=== PATIENT | male | born 1930 | race Caucasian/White ===

== ENCOUNTER 2019-06-22 13:50 | Emergency (ER) | payer MEDICARE, OTHER ==
[~2019-06-22] VITALS: Ht 180.3 cm; Wt 65.0 kg
[~2019-06-22 13:50] MED LIST: AMLO-150 PO; AZIT500T10 PO; CEFD300C37 PO; GABA-826 PO; HYDR12.517 PO; LISI40TA PO; OSEL75CA26 PO; ROPI0.5T2 PO; SIMV40TA3 PO; TAMS-11 PO
[2019-06-22 14:23] LABS: ALANINE AMINOTRANSFERASE 21 U/L (12-78); ALBUMIN 2.5 g/dL (3.4-5.0); ANION GAP 6 mmol/L (5-15); CALCIUM 9.3 mg/dL (8.5-10.1); CHLORIDE 111 mmol/L (98-107); CREATININE 1.92 mg/dL (0.7-1.3)
[2019-06-22 14:24] LABS: BASOPHILS # (AUTO) 0.06 x10^3/uL (0-0.1); BASOPHILS % (AUTO) 1 % (0-1); EOSINOPHILS # (AUTO) 0.16 x10^3/uL (0-0.4); EOSINOPHILS % (AUTO) 3 % (1-7); LYMPHOCYTES # (AUTO) 0.77 x10^3/uL (1-3.4); LYMPHOCYTES % (AUTO) 15 % (22-44); MD NO; MEAN CORPUSCULAR HGB CONC 33.3 g/dL (33.2-36.2); MEAN CORPUSCULAR VOLUME 96.2 fL (81-97); MEAN PLATELET VOLUME 7.7 fL (7.4-10.4); MONOCYTES # (AUTO) 0.29 x10^3/uL (0.2-0.8); MONOCYTES % (AUTO) 6 % (2-9); NEUTROPHILS # (AUTO) 4.03 x10^3/uL (1.8-6.8); NEUTROPHILS % (AUTO) 76 % (42-75); PLATELET COUNT 304 x10^3/uL (130-400); RED CELL DISTRIBUTION WIDTH 15.4 % (9.4-14.8)
--- NOTE | 2019-06-22 14:26 | NUR ---
[employer] TREASURY CONSULTANT: PT TO ROOM FROM LOBBY, VIA WHEELCHAIR.
[2019-06-22 14:27] LABS: ALKALINE PHOSPHATASE 80 U/L (45-117); BILIRUBIN,TOTAL 0.5 mg/dL (0.2-1.0); TOTAL PROTEIN 7.3 g/dL (6.4-8.2); TROPONIN I < 0.015 ng/mL (0.000-0.045)
--- NOTE | 2019-06-22 15:53 | NUR ---
PT. IS A & O X 4 WITH C/O INCREASING FALLS AND WEAKNESS OVER THE PAST 5 DAYS. PT. IS PINK, WARM AND DRY. LUNGS ARE DIMINISHED IN THE BASES. PCXR WAS DONE AND NEW ABNORMALITIES WERE FOUND. PT. FELL AND HIT HIS RIBS, NO FRACTURES NOTED. 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 RESP ARE EUPNEIC AND SATS ARE 100% ON ROOM AIR. PT. DENIES C/O PAIN AT THIS TIME. PT. STATES HE DOES HAVE URINARY RETENTION. PT.'S ABD. IS SOFT AND ROUND WITH BS + X 4 QUADS. MM ARE PINK AND MOIST WITH PULSES +2 THROUGHOUT. PT. GILBERT WNL. CAMRYN LUNSFORD PLACED A MORTON CATH PER MD ORDERS. PT. HAS THE CP MONITOR IN PLACE AND IV ACCESS WAS ESTABLISHED. SIDERAILS REMAIN UP X 2 WITH THE CALL LIGHT IN PLACE. PT. IS AT THE BEDSIDE.
[2019-06-22 16:25] LABS: MICROSCOPIC INDICATED
[2019-06-22 16:40] LABS: CULTURE INDICATED? YES
--- NOTE | 2019-06-22 16:53 | NUR ---
PT. IS RESTING WITHOUT CONCERNS AT THIS TIME.
[2019-06-22] MEDS ORDERED: ACETAMINOPHEN 325 MG TABLET PO ONE (17:30)
--- NOTE | 2019-06-22 17:35 | NUR ---
Note [email or web address] in EDM - 06/22/19 at 1826 by JANNETTE PT. REMAINS MONITORED WITH SEIZURE PRECAUTIONS IN PLACE. PT. FINISHED HIS SNACK AND HIS REPEAT [id number]. PT. HAS NO CONCERNS AT THIS TIME. VSS.
[2019-06-22] MEDS ORDERED: ACETAMINOPHEN 325 MG TABLET ONE (18:15)
--- NOTE | 2019-06-22 18:25 | NUR ---
PT. WAS GIVEN TYLENOL. FAMILY IS AT THE BEDSIDE. VSS.
--- NOTE | 2019-06-22 19:37 | NUR ---
PT.'S MORTON CATH WAS CHANGED TO A LEG BAG. VSS. PT. AND HIS FAMILY WERE GIVEN DISCHARGE INSTRUCTIONS AND A SCRIPT. UNDERSTANDING WAS VERBALIZED ALONG WITH WILLINGNESS TO COMPLY. PT.'S IV WAS DCD', CATH TIP INTACT PRESSURE HELD WITH HEMOSTASIS ACHIEVED. PT. WAS ASSISTED WITH DRESSING AND TAKEN TO THE DISCHARGE DESK IN A WHEELCHAIR WITH HIS FAMILY AT HIS SIDE.
[2019-06-22 19:39] VITALS: BP 120/78
--- NOTE | 2019-06-22 19:39 | NUR ---
PT. STATED RELIEF FROM THE TYLENOL GIVEN.
== END 2019-06-22 19:41 | disposition home or self-care (01) ==
LOC: ED 17:20
DX: N30.00 Acute cystitis without hematuria (principal); R33.9 Retention of urine, unspecified; R07.89 Other chest pain; Z85.118 Personal history of other malignant neoplasm of bronchus and lung
CPT/HCPCS: 36415; 51702; 70450; 71046; 72125; 74176; 80053; 81001; 84484; 85025; 87086; 93005; 99284

== ENCOUNTER → 2020-02-25 | Outpatient (CLI) | payer MEDICARE, OTHER ==
[~2020-02-25] MED LIST changes: +HYDR25TA6 PO; -ROPI0.5T2 PO; +ROPI0.5T4 PO; +SIMV40TA20 PO; -SIMV40TA3 PO
[2020-02-25 13:04] LABS: MICROSCOPIC NOT IND
[2020-02-25 13:05] LABS: BASOPHILS # (AUTO) 0.06 x10^3/uL (0-0.1); BASOPHILS % (AUTO) 1 % (0-1); EOSINOPHILS # (AUTO) 0.21 x10^3/uL (0-0.4); EOSINOPHILS % (AUTO) 3 % (1-7); LYMPHOCYTES # (AUTO) 1.31 x10^3/uL (1-3.4); LYMPHOCYTES % (AUTO) 20 % (22-44); MD NO; MEAN CORPUSCULAR HGB CONC 33.2 g/dL (33.2-36.2); MEAN CORPUSCULAR VOLUME 96.4 fL (81-97); MEAN PLATELET VOLUME 8.2 fL (7.4-10.4); MONOCYTES # (AUTO) 0.56 x10^3/uL (0.2-0.8); MONOCYTES % (AUTO) 9 % (2-9); NEUTROPHILS # (AUTO) 4.44 x10^3/uL (1.8-6.8); NEUTROPHILS % (AUTO) 67 % (42-75); PLATELET COUNT 214 x10^3/uL (130-400); RED BLOOD COUNT 3.42 x10^6/uL (4.38-5.82); RED CELL DISTRIBUTION WIDTH 15.4 % (9.4-14.8)
[2020-02-25 13:12] LABS: INTERNATIONAL NORMALIZED RATIO 0.97 (0.93-1.1)
[2020-02-25 13:15] LABS: ALANINE AMINOTRANSFERASE 12 U/L (12-78); ALBUMIN 3.3 g/dL (3.4-5.0); ANION GAP 4 mmol/L (5-15); CALCIUM 8.8 mg/dL (8.5-10.1); CHLORIDE 110 mmol/L (98-107); CREATININE 1.69 mg/dL (0.7-1.3)
[2020-02-25 13:17] LABS: ALKALINE PHOSPHATASE 91 U/L (45-117); BILIRUBIN,TOTAL 0.4 mg/dL (0.2-1.0); TOTAL PROTEIN 7.3 g/dL (6.4-8.2)
== END | disposition home or self-care (01) ==
LOC: STAR 11:16
PROVIDERS: ATTEND Neurological Surgery
DX: Z01.818 Encounter for other preprocedural examination (principal); I45.10 Unspecified right bundle-branch block; M47.816 Spondylosis without myelopathy or radiculopathy, lumbar region; M48.062 Spinal stenosis, lumbar region with neurogenic claudication
CPT/HCPCS: 36415; 71046; 72110; 80053; 81003; 85025; 85610; 85730; 93005

== ENCOUNTER 2020-03-03 12:13 | Outpatient (CLI) | payer MEDICARE, OTHER | END 2020-03-03 23:59 | disposition home or self-care (01) | LOC: STAR 12:13 | PROVIDERS: ATTEND Anesthesiology | DX: Z01.818 Encounter for other preprocedural examination (principal); Z11.59 Encounter for screening for other viral diseases | CPT/HCPCS: 36415; 87635 ==

== ENCOUNTER 2020-03-07 11:34 | Observation (INO) | payer MEDICARE, OTHER ==
[~2020-03-07] VITALS: Ht 180.3 cm; Wt 77.7 kg
[~2020-03-07 11:34] MED LIST changes: +BACITRACIN 50,000 UNIT ONE; +BUPIVACAINE/PF 0.25% ONE; +BUPIVACAINE/PF-EPI 0.5% 1:200K ONE; +VANCOMYCIN 1,000 MG ONE
[2020-03-07] MEDS ORDERED: LACTATED RINGERS 1,000 ML IV SCH (12:17)
[2020-03-07] MEDS ORDERED: CHLORHEXIDINE 15 ML UDC ONE (12:26)
[2020-03-07] MEDS ORDERED: CHLORHEXIDINE 15 ML UDC MM ONE (12:30)
[2020-03-07] MEDS ORDERED: FENTANYL PF 250 MCG/5ML ONE (12:53)
[2020-03-07] MEDS ORDERED: BUPIVACAINE/PF-EPI 0.5% 1:200K INFIL ONE (16:56)
[2020-03-07] MEDS ORDERED: hydrALAzine 20 MG/ML, 1ML IV PRN (17:00)
[2020-03-07] MEDS ORDERED: HYDROmorphone 1 MG/ML, 1ML INJ IVPush PRN (17:00)
[2020-03-07] MEDS ORDERED: METHOCARBAMOL 1,000 MG in DEXTROSE 5% 100 ML IV PRN (17:00)
[2020-03-07] MEDS ORDERED: ONDANSETRON 2MG/ML, 2ML IVPush PRN (17:00)
[2020-03-07] MEDS ORDERED: OXYcodone 5 MG/5 ML ORAL.SOL UDC PO PRN (17:00)
[2020-03-07] MEDS ORDERED: LABETALOL 5MG/ML, 20ML IV PRN (17:00)
[2020-03-07] MEDS ORDERED: FENTANYL PF 100 MCG/2ML IV PRN (17:00)
[2020-03-07] MEDS ORDERED: ACETAMINOPHEN 325 MG TABLET PO PRN (17:00)
[2020-03-07] MEDS ORDERED: PROMETHAZINE 25 MG/ML, 1ML IVPush PRN (17:00)
[2020-03-07] MEDS ORDERED: CEFAZOLIN 1,000 MG ONE (17:32)
[2020-03-07] MEDS ORDERED: PROPOFOL 10 MG/ML, 20ML ONE (17:32)
[2020-03-07] MEDS ORDERED: SUCCINYLCHOLINE 20 MG/ML, 10ML ONE (17:32)
[2020-03-07] MEDS ORDERED: GLYCOPYRROLATE 0.2MG/1ML, 5ML ONE (17:32)
[2020-03-07] MEDS ORDERED: ONDANSETRON 2MG/ML, 2ML ONE (17:32)
[2020-03-07] MEDS ORDERED: ROCURONIUM 10MG/ML,5ML ONE (17:32)
[2020-03-07] MEDS ORDERED: SUGAMMADEX 200 MG/2 ML IVPush ONE (17:32)
[2020-03-07] MEDS ORDERED: NEOSTIGMINE 1 MG/ML, 10ML ONE (17:32)
[2020-03-07] MEDS ORDERED: DEXAMETHASONE 4 MG/ML, 1ML ONE (17:32)
[2020-03-07] MEDS ORDERED: OXYcodone 5 MG/5 ML ORAL.SOL UDC ONE (18:15)
[2020-03-07 19:56] VITALS: BP 119/54
[2020-03-07] MEDS ORDERED: DIPHENHYDRAMINE 25 MG CAPSULE PO PRN (20:30)
[2020-03-07] MEDS ORDERED: OXYcodone IR 5MG TABLET PO PRN (20:30)
[2020-03-07] MEDS ORDERED: morphine SULFATE 10 MG/ML, 1ML IV PRN (20:30)
[2020-03-07] MEDS ORDERED: BISACODYL 10 MG SUPP PR PRN (20:30)
[2020-03-07] MEDS ORDERED: ONDANSETRON 2MG/ML, 2ML IV PRN (20:30)
[2020-03-07] MEDS ORDERED: MAGNESIUM HYDROXIDE 8%, 30ML UDC PO PRN (20:30)
[2020-03-07] MEDS ORDERED: DIPHENHYDRAMINE 50 MG/ML, 1ML IVPush PRN (20:30)
[2020-03-07] MEDS: NS + 20MEQ KCL 1,000 ML IV SCH (22:52)
[2020-03-07 23:15] VITALS: BP 122/56
[2020-03-08] MEDS: CEFAZOLIN PMX 1GM/50ML 50 ML IVPB SCH ×2 (00:47→09:20)
[2020-03-08 02:58] VITALS: BP 105/61
[2020-03-08 07:52] VITALS: BP 119/53
[2020-03-08] MEDS ORDERED: TAMSULOSIN 0.4 MG CAP.ER.24H PO SCH (09:00)
[2020-03-08] MEDS: ROPINIROLE 0.5MG TABLET PO SCH (09:17)
[2020-03-08] MEDS: LISINOPRIL 20 MG TABLET PO SCH (09:17)
[2020-03-08] MEDS: AMLODIPINE 5 MG TABLET PO SCH (09:17)
[2020-03-08] MEDS: SENNA/DOCUSATE TABLET PO SCH (09:17)
[2020-03-08] MEDS: HYDROcodone/APAP 10/325 MG TABLET PO PRN ×3 (09:18→18:36)
[2020-03-08] MEDS: HYDROCHLOROTHIAZIDE 12.5 MG CAPSULE PO SCH (09:18)
[2020-03-08] MEDS: NS + 20MEQ KCL 1,000 ML IV SCH ×2 (10:09→19:30)
[2020-03-08 13:16] VITALS: BP 134/90
[2020-03-08 18:56] VITALS: BP 128/59
[2020-03-09] MEDS: HYDROcodone/APAP 10/325 MG TABLET PO PRN ×2 (00:28→06:23)
[2020-03-09 00:38] VITALS: BP 99/51
[2020-03-09] MEDS: NS + 20MEQ KCL 1,000 ML IV SCH (05:10)
[2020-03-09 07:35] VITALS: BP 115/57
[2020-03-09] MEDS ORDERED: HYDR-3245 PO (08:46)
[2020-03-09] MEDS ORDERED: TIZA2TAB4 PO (08:46)
[2020-03-09] MEDS ORDERED: ROPINIROLE 1MG TABLET ONE (08:55)
[2020-03-09] MEDS: SENNA/DOCUSATE TABLET PO SCH (08:56)
[2020-03-09] MEDS: HYDROCHLOROTHIAZIDE 12.5 MG CAPSULE PO SCH (08:56)
[2020-03-09] MEDS: LISINOPRIL 20 MG TABLET PO SCH (08:57)
[2020-03-09] MEDS: ROPINIROLE 0.5MG TABLET PO SCH (08:57)
[2020-03-09] MEDS: AMLODIPINE 5 MG TABLET PO SCH (08:58)
[2020-03-09 11:02] VITALS: BP 106/55
== END 2020-03-09 11:47 | disposition home or self-care (01) ==
LOC: OUT 11:34 → 4NE 19:34 → OUT 20:33 → DCLOUNGE 03-09 11:42
PROVIDERS: ADMIT Neurological Surgery; ATTEND Neurological Surgery
DX: M48.062 Spinal stenosis, lumbar region with neurogenic claudication (principal); I10 Essential (primary) hypertension; E78.00 Pure hypercholesterolemia, unspecified; I71.4 Abdominal aortic aneurysm, without rupture; J44.9 Chronic obstructive pulmonary disease, unspecified; F17.200 Nicotine dependence, unspecified, uncomplicated; Z85.118 Personal history of other malignant neoplasm of bronchus and lung; Z79.899 Other long term (current) drug therapy
CPT/HCPCS: 63047; 63048; 72100; 96361; 96365; 96366; 97162; 97165; G0378; J0690; J1100; J2405; J2704; J2710; J3010; J3370; J3480; J7120; J3490; J0330

== ENCOUNTER 2020-04-25 10:00 | Inpatient (IN) | payer MEDICARE, OTHER ==
[~2020-04-25] VITALS: Ht 180.3 cm; Wt 74.2 kg
[2020-04-25] VITALS (13 sets, daily range): BP systolic 108–172; BP diastolic 45–79
[~2020-04-25 10:00] MED LIST changes: +APIX5TAB PO; -BACITRACIN 50,000 UNIT ONE; -BUPIVACAINE/PF 0.25% ONE; -BUPIVACAINE/PF-EPI 0.5% 1:200K ONE; +HYDR-3245 PO; +LIOT5TAB10 PO; +TIZA2TAB4 PO; -VANCOMYCIN 1,000 MG ONE
--- NOTE | 2020-04-25 10:04 | NUR ---
Evelia Loo [facility] [phone]
--- NOTE | 2020-04-25 10:25 | NUR ---
THIS IS A 89 YO M BIB EMS FROM HOME W/ C/O WEAKNESS X1 MONTH. PT REPORTS DID OUTPATIENT LABS A FEW DAYS AGO AND GOT RESULTS TODAY, HGB 4.6. PT REPORTS MULTIPLE FALLS OVER THE PAST FEW MONTHS BUT NONE WITHIN THE PAST 48 HOURS. PT REPORTS PRODUCTIVE COUGH X7 MONTHS, QUIT SMOKING 2 WEEKS AGO. PT REPORTS NO OTHER COMPLAINTS AT THIS TIME. PIV [employer]. PT RESTING ON [employer] W/ CALL LIGHT IN REACH AND SIDE RAILS UPX2. CONNECTED TO ALL MONITORING.
[2020-04-25] MEDS ORDERED: TAMS-11 PO (10:29)
[2020-04-25] MEDS ORDERED: SODIUM CHLORIDE FLUSH 10ML SYR IVF ONE (10:30)
--- NOTE | 2020-04-25 10:35 | NUR ---
PER AFSHIN, PT WAS DX W/ AFIB ON 03/28
[2020-04-25 10:53] LABS: BASOPHILS % (AUTO) 1 % (0-1); EOSINOPHILS % (AUTO) 4 % (1-7); LYMPHOCYTES % (AUTO) 20 % (22-44); MEAN CORPUSCULAR HEMOGLOBIN 30.3 pg (27.5-34.5); MEAN CORPUSCULAR HGB CONC 30.8 g/dL (33.2-36.2); MEAN PLATELET VOLUME 7.9 fL (7.4-10.4); MONOCYTES % (AUTO) 9 % (2-9); NEUTROPHILS % (AUTO) 66 % (42-75); PLATELET COUNT 221 x10^3/uL (130-400); RED BLOOD COUNT 1.48 x10^6/uL (4.38-5.82); RED CELL DISTRIBUTION WIDTH 16.9 % (9.4-14.8)
[2020-04-25 10:58] LABS: INTERNATIONAL NORMALIZED RATIO 1.07 (0.93-1.1)
[2020-04-25 10:59] LABS: ALANINE AMINOTRANSFERASE 10 U/L (12-78); ALBUMIN 2.5 g/dL (3.4-5.0); ANION GAP 5 mmol/L (5-15); CALCIUM 8.3 mg/dL (8.5-10.1); CHLORIDE 120 mmol/L (98-107); CREATININE 1.93 mg/dL (0.7-1.3)
[2020-04-25 11:01] LABS: ALKALINE PHOSPHATASE 78 U/L (45-117); BILIRUBIN,TOTAL 0.1 mg/dL (0.2-1.0); TOTAL PROTEIN 5.8 g/dL (6.4-8.2)
[2020-04-25 11:22] LABS: MD SCAN
--- NOTE | 2020-04-25 11:33 | NUR ---
PURPLE SLIP SENT TO BLOOD BANK.
--- NOTE | 2020-04-25 11:56 | NUR ---
BLOOD TRANSFUSION STARTED, VERIFIED BY KOLE COWAN. CONSENT SIGNED AND PLACED ON CHART.
--- NOTE | 2020-04-25 12:13 | NUR ---
PT VSS, NO NEW COMPLAINTS AT THIS TIME. INFUSION RATE INCREASED AT THIS TIME.
[2020-04-25] MEDS ORDERED: SODIUM CHLORIDE FLUSH 10ML SYR IVF PRN (13:30)
--- NOTE | 2020-04-25 13:36 | NUR ---
TRANSFUSION ENDED. VSS, ELIEN.
--- NOTE | 2020-04-25 14:42 | NUR ---
REPORT GIVEN TO AAMIR COWAN. PT IS READY FOR TRANSPORT AT THIS TIME.
[2020-04-25] MEDS: ROPINIROLE 0.5MG TABLET PO SCH (20:28)
[2020-04-25] MEDS ORDERED: FUROSEMIDE 20 MG/2 ML IV ONE (23:30)
[2020-04-25] MEDS ORDERED: FUROSEMIDE 20 MG/2 ML ONE (23:34)
[2020-04-26 00:28] VITALS: BP 164/76
[2020-04-26 07:09] VITALS: BP 107/58
[2020-04-26 07:10] LABS: BASOPHILS % (AUTO) 1 % (0-1); EOSINOPHILS % (AUTO) 0 % (1-7); LYMPHOCYTES % (AUTO) 3 % (22-44); MEAN CORPUSCULAR HEMOGLOBIN 30.5 pg (27.5-34.5); MEAN CORPUSCULAR HGB CONC 32.8 g/dL (33.2-36.2); MEAN PLATELET VOLUME 7.8 fL (7.4-10.4); MONOCYTES % (AUTO) 3 % (2-9); NEUTROPHILS % (AUTO) 93 % (42-75); PLATELET COUNT 188 x10^3/uL (130-400); RED CELL DISTRIBUTION WIDTH 16.7 % (9.4-14.8)
[2020-04-26] MEDS: ALBUTEROL-IPRATROPIUM MDI INH INH SCH ×4 (07:35→20:14)
[2020-04-26 08:22] LABS: MD SCAN
[2020-04-26] MEDS: ROPINIROLE 0.5MG TABLET PO SCH (09:05)
[2020-04-26] MEDS ORDERED: FUROSEMIDE 40 MG/4 ML IV ONE (11:00)
[2020-04-26] MEDS: TAMSULOSIN 0.4 MG CAP.ER.24H PO SCH (11:02)
[2020-04-26 12:35] VITALS: BP 114/61
[2020-04-26] MEDS ORDERED: GOLYTELY 4,000ML ORAL.SOL PO ONE (18:00)
[2020-04-26 19:10] VITALS: BP 131/65
[2020-04-27] VITALS (8 sets, daily range): BP systolic 100–126; BP diastolic 49–65
[2020-04-27] MEDS: TRAZODONE 50MG TABLET PO PRN ×2 (00:23→23:28)
[2020-04-27 06:31] LABS: ALBUMIN 2.2 g/dL (3.4-5.0); ANION GAP 9 mmol/L (5-15); CALCIUM 7.7 mg/dL (8.5-10.1); CHLORIDE 110 mmol/L (98-107); CREATININE 1.89 mg/dL (0.7-1.3)
[2020-04-27] MEDS: ALBUTEROL-IPRATROPIUM MDI INH INH SCH ×4 (08:00→19:58)
[2020-04-27] MEDS ORDERED: CHLORHEXIDINE 15 ML UDC MM STA (10:58)
[2020-04-27] MEDS ORDERED: PROPOFOL 10 MG/ML, 20ML ONE (11:45)
[2020-04-27] MEDS ORDERED: LIDOCAINE-MPF 2% ,5ML ONE (11:45)
[2020-04-27] MEDS ORDERED: PHENYLEPHRINE 10 MG/ML ONE (11:45)
[2020-04-27] MEDS ORDERED: DEXAMETHASONE 4 MG/ML, 1ML ONE (11:45)
[2020-04-27] MEDS ORDERED: LABETALOL 5MG/ML, 20ML ONE (11:49)
[2020-04-27] MEDS ORDERED: MAGNESIUM SULFATE 1 GM/2 ML ONE (11:50)
[2020-04-27] MEDS ORDERED: cloniDINE/PF 100 MCG/ML, 10 ML ONE (11:50)
[2020-04-27] MEDS ORDERED: METHOCARBAMOL 1,000 MG in DEXTROSE 5% 100 ML IV PRN (12:00)
[2020-04-27] MEDS ORDERED: DIPHENHYDRAMINE 50 MG/ML, 1ML IVPush PRN (12:00)
[2020-04-27] MEDS ORDERED: ALBUTEROL/IPRATROPIUM 2.5MG/0.5MG, 3 ML NPPB PRN (12:00)
[2020-04-27] MEDS ORDERED: HALOPERIDOL 5 MG/ML IV PRN (12:00)
[2020-04-27] MEDS ORDERED: MEPERIDINE/PF 25MG/0.5ML IVPush PRN (12:00)
[2020-04-27] MEDS ORDERED: EPHEDRINE 50 MG/ML, 1ML IVPush PRN (12:00)
[2020-04-27] MEDS ORDERED: OXYcodone 5 MG/5 ML ORAL.SOL UDC PO PRN (12:00)
[2020-04-27] MEDS ORDERED: ONDANSETRON 2MG/ML, 2ML IVPush PRN (12:00)
[2020-04-27] MEDS ORDERED: LABETALOL 5MG/ML, 20ML IV PRN (12:00)
[2020-04-27] MEDS ORDERED: HYDROmorphone 1 MG/ML, 1ML INJ IVPush PRN (12:00)
[2020-04-27] MEDS ORDERED: FENTANYL PF 100 MCG/2ML IV PRN (12:00)
[2020-04-27] MEDS ORDERED: DIAZEPAM 5 MG/ML, 2ML IVPush PRN (12:00)
[2020-04-27] MEDS ORDERED: EPHEDRINE 50 MG/ML, 1ML IM PRN (12:00)
[2020-04-27] MEDS ORDERED: hydrALAzine 20 MG/ML, 1ML IV PRN (12:00)
[2020-04-27] MEDS ORDERED: MIDAZOLAM 1 MG/ML, 2ML IV PRN (12:00)
[2020-04-27] MEDS ORDERED: HYDROcodone/APAP 7.5-325MG/15ML UDC PO PRN (12:00)
[2020-04-27] MEDS ORDERED: LORazepam 2 MG/ML, 1ML IVPush PRN (12:00)
[2020-04-27] MEDS ORDERED: MIDAZOLAM 1 MG/ML, 2ML ONE (12:56)
[2020-04-27] MEDS ORDERED: EPINEPHRINE 1 MG/ML, 1ML SQ PRN (14:30)
[2020-04-27] MEDS ORDERED: IRON DEXTRAN COMPLEX 25 MG in SODIUM CHLORIDE 0.9% 50 ML IV ONE (14:30)
[2020-04-27] MEDS: TAMSULOSIN 0.4 MG CAP.ER.24H PO SCH (15:26)
[2020-04-27] MEDS: LIOTHYRONINE 5 MCG TABLET PO SCH (15:26)
[2020-04-27] MEDS: ROPINIROLE 0.5MG TABLET PO SCH (15:27)
[2020-04-27] MEDS ORDERED: EPINEPHRINE 1 MG/ML, 1ML IV PRN (16:40)
[2020-04-27] MEDS ORDERED: IRON DEXTRAN COMPLEX 2,250 MG in SODIUM CHLORIDE 0.9% 250 ML IV ONE (18:00)
[2020-04-28 01:37] VITALS: BP 135/74
[2020-04-28] MEDS: ALBUTEROL-IPRATROPIUM MDI INH INH SCH ×4 (06:11→20:03)
[2020-04-28 07:34] VITALS: BP 134/63
[2020-04-28] MEDS: ROPINIROLE 0.5MG TABLET PO SCH (08:35)
[2020-04-28] MEDS: LIOTHYRONINE 5 MCG TABLET PO SCH (08:35)
[2020-04-28] MEDS: TAMSULOSIN 0.4 MG CAP.ER.24H PO SCH (08:35)
[2020-04-28 14:00] VITALS: BP 124/62
[2020-04-28] MEDS: MAGNESIUM HYDROXIDE 8%, 30ML UDC PO SCH (15:53)
[2020-04-28 19:20] VITALS: BP 125/60
[2020-04-29 00:49] VITALS: BP 132/60
[2020-04-29] MEDS: ALBUTEROL-IPRATROPIUM MDI INH INH SCH ×3 (05:58→15:02)
[2020-04-29 07:11] VITALS: BP 124/62
[2020-04-29] MEDS: TAMSULOSIN 0.4 MG CAP.ER.24H PO SCH (08:58)
[2020-04-29] MEDS: MAGNESIUM HYDROXIDE 8%, 30ML UDC PO SCH (08:58)
[2020-04-29] MEDS: LIOTHYRONINE 5 MCG TABLET PO SCH (08:58)
[2020-04-29] MEDS: ROPINIROLE 0.5MG TABLET PO SCH (08:58)
[2020-04-29 10:07] LABS: ALBUMIN 2.3 g/dL (3.4-5.0); ANION GAP 4 mmol/L (5-15); CALCIUM 8.1 mg/dL (8.5-10.1); CHLORIDE 114 mmol/L (98-107); CREATININE 1.64 mg/dL (0.7-1.3)
[2020-04-29 12:15] VITALS: BP 152/72
[2020-04-29] MEDS ORDERED: OMEP-110 PO (15:32)
== END 2020-04-29 18:57 | disposition home or self-care (01) | DRG 377 ==
LOC: ED 11:19 → EDIP 13:25 → 4WST 14:54
PROVIDERS: ADMIT Family Medicine; ATTEND Family Medicine
PROC: 30233N1 Transfusion of Nonautologous Red Blood Cells into Peripheral Vein, Percutaneous Approach (ICD-10-PCS; 2020-04-25)
PROC: 0DBK8ZX Excision of Ascending Colon, Via Natural or Artificial Opening Endoscopic, Diagnostic (ICD-10-PCS; 2020-04-27)
PROC: 0DBN8ZX Excision of Sigmoid Colon, Via Natural or Artificial Opening Endoscopic, Diagnostic (ICD-10-PCS; 2020-04-27)
PROC: 0DBM8ZX Excision of Descending Colon, Via Natural or Artificial Opening Endoscopic, Diagnostic (ICD-10-PCS; 2020-04-27)
PROC: 0DJ08ZZ Inspection of Upper Intestinal Tract, Via Natural or Artificial Opening Endoscopic (ICD-10-PCS; principal; 2020-04-27 12:00)
DX: K57.31 Diverticulosis of large intestine without perforation or abscess with bleeding (principal); E43 Unspecified severe protein-calorie malnutrition; N17.0 Acute kidney failure with tubular necrosis; D62 Acute posthemorrhagic anemia; E87.2 Acidosis; I48.0 Paroxysmal atrial fibrillation; I10 Essential (primary) hypertension; G25.81 Restless legs syndrome; J44.9 Chronic obstructive pulmonary disease, unspecified; G89.29 Other chronic pain; M54.9 Dorsalgia, unspecified; F17.200 Nicotine dependence, unspecified, uncomplicated; Z20.828 Contact with and (suspected) exposure to other viral communicable diseases; E03.9 Hypothyroidism, unspecified; N40.1 Benign prostatic hyperplasia with lower urinary tract symptoms; R33.8 Other retention of urine; Z85.118 Personal history of other malignant neoplasm of bronchus and lung; Z68.22 Body mass index [BMI] 22.0-22.9, adult
CPT/HCPCS: 36415; 36430; 71045; 78582; 80053; 80069; 83690; 83735; 85014; 85018; 85025; 85379; 85610; 85730; 86850; 86900; 86923; 87635; 88305; 93005; 94640; 99285; G0378; J1100; J1750; J1940; J2250; J2704; J3475; A9540; A9558; J0735; J2370; J7050; P9016

== ENCOUNTER 2021-01-18 10:59 | Outpatient (CLI) | payer MEDICARE, OTHER ==
[~2021-01-18 10:59] MED LIST changes: -HYDR-3245 PO; +HYDR1TAB53 PO; -LISI40TA PO; +LISI40TA9 PO; +OMEP-110 PO; +TIZA-106 PO; -TIZA2TAB4 PO
== END 2021-01-18 23:59 | disposition home or self-care (01) ==
LOC: ROC 10:59
PROVIDERS: ATTEND Radiology Radiation Oncology
DX: C34.11 Malignant neoplasm of upper lobe, right bronchus or lung (principal); J44.9 Chronic obstructive pulmonary disease, unspecified; I12.9 Hypertensive chronic kidney disease with stage 1 through stage 4 chronic kidney disease, or unspecified chronic kidney disease; N18.2 Chronic kidney disease, stage 2 (mild); E03.9 Hypothyroidism, unspecified; D50.0 Iron deficiency anemia secondary to blood loss (chronic); G89.29 Other chronic pain; I48.0 Paroxysmal atrial fibrillation; E78.00 Pure hypercholesterolemia, unspecified; Z79.899 Other long term (current) drug therapy; Z87.891 Personal history of nicotine dependence
CPT/HCPCS: 99214; G0463

== ENCOUNTER 2021-02-06 07:35 | Day surgery (SDC) | payer MEDICARE, OTHER ==
[~2021-02-06] VITALS: Ht 177.8 cm; Wt 68.4 kg
[2021-02-06 08:10] VITALS: BP 130/59
[2021-02-06] MEDS ORDERED: FENTANYL PF 100 MCG/2ML ONE (08:52)
[2021-02-06] MEDS ORDERED: MIDAZOLAM 1 MG/ML, 5ML ONE (08:53)
[2021-02-06] MEDS ORDERED: NALOXONE 1 MG/ML, 2ML ONE (08:53)
[2021-02-06] MEDS ORDERED: FLUMAZENIL 0.1 MG/1 ML, 5ML ONE (08:53)
== END 2021-02-06 11:20 | disposition home or self-care (01) ==
LOC: RAD 07:35
PROVIDERS: ATTEND Radiology Radiation Oncology
DX: R91.8 Other nonspecific abnormal finding of lung field (principal); C34.11 Malignant neoplasm of upper lobe, right bronchus or lung; I48.91 Unspecified atrial fibrillation; I12.9 Hypertensive chronic kidney disease with stage 1 through stage 4 chronic kidney disease, or unspecified chronic kidney disease; N18.30 Chronic kidney disease, stage 3 unspecified; F17.210 Nicotine dependence, cigarettes, uncomplicated; Z79.899 Other long term (current) drug therapy; Z88.8 Allergy status to other drugs, medicaments and biological substances; Z82.49 Family history of ischemic heart disease and other diseases of the circulatory system; Z80.3 Family history of malignant neoplasm of breast
CPT/HCPCS: 32408; 88305; 88333; 99156; 99157; J2250; J3010; 77012; J2310

== ENCOUNTER → 2021-03-01 | Outpatient (CLI) | payer MEDICARE, OTHER ==
[~2021-03-01] MED LIST changes: +FERR324T5 PO; +FURO20TA3 PO; +PANT40TA6 PO; +POTA20TA14 PO
[2021-03-01 14:05] LABS: BASOPHILS % (AUTO) 1 % (0-1); EOSINOPHILS % (AUTO) 4 % (1-7); LYMPHOCYTES % (AUTO) 20 % (22-44); MEAN CORPUSCULAR HEMOGLOBIN 31.1 pg (27.5-34.5); MEAN CORPUSCULAR HGB CONC 32.6 g/dL (33.2-36.2); MEAN PLATELET VOLUME 7.2 fL (7.4-10.4); MONOCYTES % (AUTO) 8 % (2-9); NEUTROPHILS % (AUTO) 68 % (42-75); PLATELET COUNT 198 x10^3/uL (130-400); RED BLOOD COUNT 3.53 x10^6/uL (4.38-5.82); RED CELL DISTRIBUTION WIDTH 15.9 % (9.4-14.8)
[2021-03-01 14:17] LABS: ALANINE AMINOTRANSFERASE 14 U/L (12-78); ANION GAP 5 mmol/L (5-15); CALCIUM 8.7 mg/dL (8.5-10.1); CHLORIDE 111 mmol/L (98-107); CREATININE 1.68 mg/dL (0.7-1.3)
[2021-03-01 14:19] LABS: ALKALINE PHOSPHATASE 94 U/L (45-117); BILIRUBIN,TOTAL 0.3 mg/dL (0.2-1.0)
== END | disposition home or self-care (01) ==
LOC: STAR 13:02
PROVIDERS: ATTEND Internal Medicine
DX: Z01.818 Encounter for other preprocedural examination (principal); D50.9 Iron deficiency anemia, unspecified; I45.10 Unspecified right bundle-branch block
CPT/HCPCS: 36415; 80053; 85025; 93005

== ENCOUNTER 2021-03-06 09:05 | Day surgery (SDC) | payer MEDICARE, OTHER ==
[~2021-03-06] VITALS: Ht 180.3 cm; Wt 68.0 kg
[2021-03-06 09:30] VITALS: BP 161/54
[2021-03-06] MEDS ORDERED: LACTATED RINGERS 1,000 ML IV SCH (09:30)
[2021-03-06] MEDS ORDERED: CHLORHEXIDINE 15 ML UDC PO ONE (09:30)
[2021-03-06] MEDS ORDERED: PROPOFOL 10 MG/ML, 20ML ONE (10:04)
== END 2021-03-06 11:50 | disposition home or self-care (01) ==
LOC: OUT 09:05
PROVIDERS: ATTEND Internal Medicine
DX: K31.811 Angiodysplasia of stomach and duodenum with bleeding (principal); D50.0 Iron deficiency anemia secondary to blood loss (chronic); I12.9 Hypertensive chronic kidney disease with stage 1 through stage 4 chronic kidney disease, or unspecified chronic kidney disease; N18.9 Chronic kidney disease, unspecified; Z88.8 Allergy status to other drugs, medicaments and biological substances
CPT/HCPCS: 44369; J2704; J7120